=== PATIENT | female | born 1995 | race Two or more races ===

== ENCOUNTER → 2019-06-09 | Outpatient (CLI) | payer OTHER ==
[~2019-06-09] MED LIST: PRENATAL 19 TA1 EAC1
== END | disposition home or self-care (01) ==
LOC: PRENATAL 15:00
DX: O35.3XX1 Maternal care for (suspected) damage to fetus from viral disease in mother, fetus 1 (principal); Z36.89 Encounter for other specified antenatal screening; O99.212 Obesity complicating pregnancy, second trimester; O34.219 Maternal care for unspecified type scar from previous cesarean delivery; Z3A.24 24 weeks gestation of pregnancy; O65.5 Obstructed labor due to abnormality of maternal pelvic organs

== ENCOUNTER 2019-09-15 10:01 | Inpatient (IN) | payer OTHER ==
[~2019-09-15] VITALS: Ht 160 cm; Wt 93.0 kg
[2019-09-21] MEDS ORDERED: PRENATAL MULTI1 EAC3 PO (11:49)
[2019-09-21] MEDS ORDERED: IRON325 MG PO (11:51)
[2019-09-21] MEDS ORDERED: FOLIC ACID0.8 M1 PO (11:52)
== END 2019-09-23 11:33 | disposition home or self-care (01) | DRG 785 ==
LOC: OB/GYN 09-21 07:00 → O/R 09-21 12:13 → OB/GYN 09-21 13:00
PROVIDERS: ADMIT Obstetrics & Gynecology
PROC: 0UB70ZZ Excision of Bilateral Fallopian Tubes, Open Approach (ICD-10-PCS; 2019-09-21)
PROC: 4A1HXFZ Monitoring of Products of Conception, Cardiac Rhythm, External Approach (ICD-10-PCS; 2019-09-21)
PROC: 3E033VJ Introduction of Other Hormone into Peripheral Vein, Percutaneous Approach (ICD-10-PCS; 2019-09-21)
PROC: 10D00Z1 Extraction of Products of Conception, Low, Open Approach (ICD-10-PCS; principal; 2019-09-21 07:00)
DX: O34.211 Maternal care for low transverse scar from previous cesarean delivery (principal); Z3A.39 39 weeks gestation of pregnancy; Z37.0 Single live birth; Z30.2 Encounter for sterilization

== ENCOUNTER 2023-01-27 09:54 | Emergency (ER) | payer OTHER ==
[~2023-01-27] VITALS: Ht 160 cm; Wt 71.7 kg
[~2023-01-27 09:54] MED LIST changes: +FOLIC ACID0.8 M1 PO; +IRON325 MG PO; +PRENATAL MULTI1 EAC3 PO
[2023-01-27 13:55] LABS: HEMATOCRIT 29.9 % (36.0-45.00); HEMOGLOBIN 9.3 g/dL (12.0-15.00); MEAN CORPUSCULAR HGB CONC 31.2 g/dl (32.0-36.0); PLATELET COUNT 407 K/uL (150-450); RED BLOOD COUNT 4.44 M/uL (4.00-6.00); RED CELL DISTRIBUTION WIDTH 18.1 % (11.5-14.5)
[2023-01-27 13:56] LABS: MEAN CELL VOLUME 67.2 fL (80.00-100.00)
[2023-01-27 14:05] LABS: CREATININE SERUM 0.7 mg/dL (0.55-1.02); GFR 99.64; POTASSIUM 4.14 mEq/L (3.5-5.1)
[2023-01-27] MEDS ORDERED: MACROBID 100 M100 MG PO (16:01)
== END 2023-01-27 16:15 | disposition home or self-care (01) ==
LOC: ER 09:54
PROVIDERS: General Practice
DX: N30.80 Other cystitis without hematuria (principal); B96.20 Unspecified Escherichia coli [E. coli] as the cause of diseases classified elsewhere

== ENCOUNTER 2024-02-15 15:55 | Emergency (ER) | payer OTHER ==
[~2024-02-15] VITALS: Ht 162.6 cm; Wt 76.2 kg
[~2024-02-15 15:55] MED LIST changes: +MACROBID 100 M100 MG PO
[2024-02-15] MEDS ORDERED: ORPHENADRINE CITRATE 30 MG/ML AMPUL IM ONE (18:30)
[2024-02-15] MEDS ORDERED: KETOROLAC TROMETHAMINE 60 MG VIAL IM ONE (18:30)
[2024-02-15] MEDS ORDERED: NORFLEX100MG PO (18:40)
[2024-02-15] MEDS ORDERED: DICLOFENAC SODI50 MG PO (18:40)
== END 2024-02-15 21:16 ==
LOC: ER 15:57
DX: M62.830 Muscle spasm of back (principal)